=== PATIENT | female | born 1960 | race Asian ===

== ENCOUNTER 2016-08-26 07:52 | Day surgery (SDC) | payer OTHER ==
[2016-08-15 13:28] LABS: BASOPHILS 0.2 %; BASOPHILS ABSOLUTE 0.01 10/3/uL (0.0-0.16); EOSINOPHILS 1.7 %; EOSINOPHILS ABSOLUTE 0.08 10/3/uL (0.0-0.53); HEMATOCRIT 39.2 % (36.0-48.0); HEMOGLOBIN 13.5 g/dL (12.0-16.0); LYMPHOCYTES 45.6 %; MEAN CORPUS HGB CONC 34.4 g/dL (32.0-36.0); MEAN CORPUSCULAR HEMOGLOB 29.4 pg (26.0-34.0); MEAN CORPUSCULAR VOLUME 85.4 fL (80-100); MEAN PLATELET VOLUME 9.5 fL (9.2-13.0); MONOCYTES 4.3 %; NEUTROPHILS 48.2 %; NEUTROPHILS ABSOLUTE 2.22 10/3/uL (2.02-8.40); PLATELET COUNT 298 10/3/uL (150-400); RBC DISTRIBUTION WIDTH 13.8 % (12.0-16.0); RED CELL COUNT 4.59 10/6/uL (4.0-5.6); WHITE BLOOD CELLS 4.6 10/3/uL (4.5-10.5)
[2016-08-15 13:29] LABS: MANUAL DIFF NO %
[2016-08-15 13:39] LABS: BUN (BLOOD UREA NITROGEN) 19 MG/DL (6-23); CALCIUM, SERUM 9.1 MG/DL (8.5-10.4); CHLORIDE, SERUM 107 MMOL/L (96-112); CO2 (CARBON DIOXIDE) 30 MMOL/L (24-34); CREATININE 0.71 MG/DL (0.55-1.02); GFR AFRICAN AMERICAN 112 ML/MIN (>=60); GFR NON AFRICAN AMERICAN 97 ML/MIN (>=60); GLUCOSE, SERUM 104 MG/DL (60-99); POTASSIUM, SERUM 4.2 MMOL/L (3.5-5.3); SODIUM, SERUM 142 MMOL/L (135-148)
--- NOTE | ~2016-08-26 | OP ---
Record Of Operation [facility] [address] [place]. 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 POSTOPERATIVE DIAGNOSES: 1. 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 2. Fibroids. PROCEDURE PERFORMED: CPT code 22312. Da Linden (laparoscopic robotic) hysterectomy and bilateral salpingo-oophorectomy. ESTIMATED BLOOD LOSS: 10 mL. MATERIAL FORWARDED TO LABORATORY FOR EXAMINATION: Correct as listed on pathology report. INDICATION AND FINDINGS: Arden Correa is a 56-year-old, 3, para 3, seen in consultation on 08/15/2016 regarding cervical carcinoma in situ noted on her 07/03/2016 pelviscopy directed biopsies. Her endocervical curettings were negative. She has a history of abnormal Pap smears. She has been menopausal for five years and has pelvic pressure and chronic pelvic pain. FINDINGS AT THE TIME OF SURGERY: She has an 8-10 week fibroid uterus, atrophic adnexa. The uterus, cervix, tubes, and ovaries were removed intact and upon inspection, there are multiple subserosal, intramural and submucosal fibroids. No other abnormalities noted. PROCEDURE IN DETAIL: The patient was taken to the operating room, where under general endotracheal anesthesia, she was placed in the modified lithotomy position using Alex stirrups. The abdomen and vagina were prepped and the patient was draped. A LESLIE uterine manipulator was placed without difficulty. A Veress needle was inserted in the left upper quadrant and pneumoperitoneum was established. An 8 mm cannula for the da Linden system was inserted approximately 10 cm above the umbilicus. The da Linden scope was inserted and under direct visualization, three additional 8 mm cannula for the da Linden system were inserted, two in the lower quadrants and one in the right midaxillary line. An accessory 10/12 cannula was placed in left upper quadrant. The patient was placed in Trendelenburg and the robot was assembled from the console. A thorough intraabdominal pelvic exploration was undertaken. The retroperitoneal spaces were entered over the psoas muscles with extension to the round ligaments which were isolated, coagulated with bipolar cautery, and transected with monopolar scissors. The anterior leaves of the broad ligament were dissected to the vesicouterine fold. The bladder was dissected off the lower uterine segment and vesicovaginal septum without difficulty. The perirectal spaces were developed. The ovarian vessels were skeletonized, coagulated with bipolar cautery, and transected with monopolar scissors. The posterior leaves of the broad ligament were dissected to the uterosacral ligaments. The uterine vessels were skeletonized. They were coagulated with bipolar Record Of Operation [facility] [address] [facility] [place]. [address] NAME: ARDEN CORREA : 64 STATUS : REG [facility] PAT#: [id number] AGE: 56 ADM/REG DATE : 08/26/16 MR#: [id number] REPORT SERV DATE: 08/26/16 DICTATED BY: CHAZ ARREOLA DATE: 08/26/16 REPORT STATUS : Draft TRANSCRIBED BY: MODL DATE: 08/26/16 cautery and transected with monopolar scissors. The cardinal and uterosacral ligaments were dissected with monopolar cautery to a level below the cervix. The vagina was entered over the ROSA MARIA nonconductive ring and using electrocautery in a circumferential fashion, the hysterectomy was completed. The specimen was removed through the vagina where it was inspected and the findings were as noted. The pelvis was irrigated, suctioned, inspected, and found to be free of clot, blood, or debris. The vaginal cuff was closed with a running stitch of #3-0 V-Loc. The pneumoperitoneum was reduced. All instruments were removed. All counts were correct. The 1012 fascial incision was closed with dofnxp-vy-doahw stitch of 0 Vicryl. The skin incisions were closed with subcuticular stitches of 4-0 Monocryl followed by Dermabond. The patient was awakened and taken to the recovery room in stable condition after having tolerated the procedure well. KAL/CADEN Chaz Arreola M.D. / [id number] CC: Jo Estrella M.D.
[~2016-08-26 07:52] MED LIST: X5 PO; ZESTORETIC1 TA1 PO
== END 2016-08-26 16:49 | disposition home or self-care (01) ==
LOC: SDC 07:52
PROVIDERS: Obstetrics & Gynecology Gynecologic Oncology
PROC: 0UTC4ZZ Resection of Cervix, Percutaneous Endoscopic Approach (ICD-10-PCS; 2016-08-26)
PROC: 0UT24ZZ Resection of Bilateral Ovaries, Percutaneous Endoscopic Approach (ICD-10-PCS; 2016-08-26)
PROC: 0UT74ZZ Resection of Bilateral Fallopian Tubes, Percutaneous Endoscopic Approach (ICD-10-PCS; 2016-08-26)
PROC: 0UT94ZZ Resection of Uterus, Percutaneous Endoscopic Approach (ICD-10-PCS; principal; 2016-08-26 08:30)
DX: D06.9 Carcinoma in situ of cervix, unspecified (principal); I10 Essential (primary) hypertension; F41.9 Anxiety disorder, unspecified; G51.0 Bell's palsy; M19.90 Unspecified osteoarthritis, unspecified site; Z79.899 Other long term (current) drug therapy; Z98.890 Other specified postprocedural states; Z90.49 Acquired absence of other specified parts of digestive tract
CPT/HCPCS: 36415; 71020; 80048; 85025; 86850; 86900; 86901; 87389; 88307; 88309; 93005; A9270-GY; J0690; J0694; J1170; J1200; J1885; J2250; J2405; J2710; J3010